=== PATIENT | male | born 1990 | race Caucasian/White ===

== ENCOUNTER 2022-07-04 06:55 | Outpatient (CLI) | payer BC, SELFPAY ==
--- NOTE | ~2022-07-04 | MR_ITS ---
MRI of the cervical spine Clinical History: Pain Technique: Axial T2-weighted and gradient images, and sagittal T1-weighted, T2-weighted, and STIR jaxon ges were acquired. Findings: There is no fracture or subluxation of the cervical spine. Vertebral bodies maintain normal height and alignment. No bone marrow signal abnormality seen. At C2-C3, C3-C4, and C4-C5, there is no disc bulge or herniation. No spinal canal stenosis, cord comp ression, or neural foraminal narrowing at these levels. At C5-C6, there is disc protrusion, most prominent in the left paracentral region, which minimally ef faces the thecal sac, but without pastor cord compression. There is probable mild impingement of the e xiting left-sided nerve root. Right neural foramen preserved. At C6-C7, there is no disc bulge or herniation. No spinal canal stenosis, cord compression, or neural foraminal narrowing. No abnormal signal seen in the spinal cord. Paravertebral soft tissues are unremarkable. Impression: Left paracentral disc protrusion at C5-C6, which probably impinges the exiting left-sided nerve root. Reviewed, dictated and finalized at [facility]. [employer] Impression: Left paracentral disc protrusion at C5-C6, which probably impinges the exiting left-sided nerve root.
== END 2022-07-04 06:56 | disposition home or self-care (01) ==
PROVIDERS: PCP Family Medicine; Visit Provider Family Medicine
DX: M50.20 Other cervical disc displacement, unspecified cervical region (principal)
CPT/HCPCS: 72141